=== PATIENT | female | born 1995 | race Two or more races ===

== ENCOUNTER 2023-07-24 07:30 | Emergency (ER) | payer OTHER, BC ==
[2023-07-24] MEDS ORDERED: fentaNYL 50 MCG/ML SDV ONE ×3 (07:52→08:33)
[2023-07-24] MEDS ORDERED: Sodium Chloride 0.9% 1,000 ML IV ONE (07:55)
[2023-07-24 07:56] LABS: BASOPHILS ABSOLUTE AUTO 0.02 K/uL (0.00-0.20); BASOPHILS PERCENT AUTO 0.2 % (0.0-2.0); EOSINOPHILS ABSOLUTE AUTO 0.08 K/uL (0.00-0.50); EOSINOPHILS PERCENT AUTO 0.9 % (0.0-5.0); HEMATOCRIT 42.9 % (34.0-46.0); HEMOGLOBIN 14.3 g/dL (11.7-15.5); LYMPHOCYTES ABSOLUTE AUTO 2.04 K/uL (0.50-3.50); MEAN CORPUSCULAR HEMOGLOBIN 29.5 pg (28.2-33.3); MEAN CORPUSCULAR HGB CONC 33.3 g/dL (31.7-36.0); MEAN CORPUSCULAR VOLUME 88.5 fL (84.0-98.0); MONOCYTES ABSOLUTE AUTO 0.64 K/uL (0.00-1.00); MONOCYTES PERCENT AUTO 6.9 % (2.0-14.0); NEUTROPHILS ABSOLUTE AUTO 6.48 K/uL (1.40-7.00); PLATELET COUNT,PLT 308 K/uL (150-350); RED BLOOD CELL COUNT 4.85 M/uL (3.77-5.09); WHITE BLOOD CELL COUNT,WBC 9.3 K/uL (4.0-10.2)
[2023-07-24] MEDS ORDERED: Ondansetron 4 MG/2 ML SDV ONE ×2 (08:01→08:40)
[2023-07-24 08:11] LABS: PROTHROMBIN TIME 9.6 SEC (9.0-11.1)
[2023-07-24 08:17] LABS: ALANINE AMINOTRANSFERASE,ALT 32 U/L (12-78); ALBUMIN 3.8 g/dL (3.4-5.0); ALKALINE PHOSPHATASE 110 IU/L (46-116); ANION GAP 10.1 meq/L (7-15); ASPARTATE AMNIOTRANSFERASE,AST 21 U/L (15-37); BILIRUBIN TOTAL 0.4 mg/dL (0.2-1.0); BLOOD UREA NITROGEN,BUN 15 mg/dL (7-18); CALCIUM 8.9 mg/dL (8.5-10.1); CARBON DIOXIDE,CO2 27.9 mmol/L (21.0-32.0); CHLORIDE,CL 103 mmol/L (98-107); CREATININE 0.85 mg/dL (0.51-1.17); ESTIMATED GFR 96 mL/min (>=60); GLUCOSE RANDOM 101 mg/dL (70-99); LIPASE 43 U/L (16-77); POTASSIUM,K 4.2 mmol/L (3.5-5.1); PROTEIN TOTAL,TP 8.2 g/dL (6.4-8.2); SODIUM,NA 141 mmol/L (136-145)
[2023-07-24] MEDS ORDERED: Prochlorperazine 10 MG/2 ML SDV ONE (08:55)
[2023-07-24] MEDS: Ketorolac 15 MG/ML SDV IVPUSH ONE (11:05)
== END 2023-07-24 11:20 | disposition home or self-care (01) ==
LOC: LL.ED 07:30
DX: S40.811A Abrasion of right upper arm, initial encounter (principal); V49.50XA Passenger injured in collision with unspecified motor vehicles in traffic accident, initial encounter; Y92.410 Unspecified street and highway as the place of occurrence of the external cause
CPT/HCPCS: 36415; 70450; 71250; 72125; 72170; 73060-RT; 80053; 83690; 84703; 85025; 85610; 96361; 96374; 96375; 96376; 99283; 99284-25; J0780; J1885; J2405; J3010; J7030

== ENCOUNTER 2023-10-18 19:27 | Emergency (ER) | payer BC ==
[2023-10-18 20:05] LABS: APPEARANCE,URINE CLEAR; BILIRUBIN,URINE NEGATIVE (NEGATIVE); COLOR,URINE YELLOW; GLUCOSE,URINE NEGATIVE (NEGATIVE); KETONES,URINE TRACE mg/dL (NEGATIVE); LEUKOCYTE ESTERASE,URINE NEGATIVE (NEGATIVE); NITRITE,URINE NEGATIVE (NEGATIVE); OCCULT BLOOD,URINE MODERATE (NEGATIVE); PROTEIN,URINE NEGATIVE (NEGATIVE); UROBILINOGEN,URINE 0.2 E.U./dL (0.2-1.0)
[2023-10-18] MEDS: Ketorolac 30 MG/ML SDV IVPUSH ONE (20:08)
[2023-10-18] MEDS: Metoclopramide 10 MG/2 ML SDV IVPUSH ONE (20:09)
[2023-10-18 20:13] LABS: BASOPHILS ABSOLUTE AUTO 0.03 K/uL (0.00-0.20); BASOPHILS PERCENT AUTO 0.2 % (0.0-2.0); EOSINOPHILS ABSOLUTE AUTO 0.05 K/uL (0.00-0.50); EOSINOPHILS PERCENT AUTO 0.4 % (0.0-5.0); HEMATOCRIT 42.5 % (34.0-46.0); HEMOGLOBIN 13.8 g/dL (11.7-15.5); LYMPHOCYTES ABSOLUTE AUTO 2.02 K/uL (0.50-3.50); LYMPHOCYTES PERCENT AUTO 14.7 % (10.0-50.0); MEAN CORPUSCULAR HEMOGLOBIN 29.3 pg (28.2-33.3); MEAN CORPUSCULAR HGB CONC 32.5 g/dL (31.7-36.0); MEAN CORPUSCULAR VOLUME 90.2 fL (84.0-98.0); MONOCYTES PERCENT AUTO 5.1 % (2.0-14.0); NEUTROPHILS PERCENT AUTO 79.6 % (45.0-80.0); PLATELET COUNT,PLT 257 K/uL (150-350); RED BLOOD CELL COUNT 4.71 M/uL (3.77-5.09); RED CELL DISTRIBUTION WIDTH 12.6 % (11.2-14.1); WHITE BLOOD CELL COUNT,WBC 13.7 K/uL (4.0-10.2)
[2023-10-18] MEDS: Sodium Chloride 0.9% 10 ML Syringe FLUSH PRN (20:16)
[2023-10-18 20:18] LABS: EPITHELIAL CELLS,URINE FEW /LPF; WBC,URINE 0-5 /HPF
[2023-10-18 20:26] LABS: ALANINE AMINOTRANSFERASE,ALT 35 U/L (12-78); ALBUMIN 3.9 g/dL (3.4-5.0); ALKALINE PHOSPHATASE 109 IU/L (46-116); ANION GAP 12.4 meq/L (7-15); ASPARTATE AMNIOTRANSFERASE,AST 22 U/L (15-37); BILIRUBIN TOTAL 0.5 mg/dL (0.2-1.0); BLOOD UREA NITROGEN,BUN 11 mg/dL (7-18); CARBON DIOXIDE,CO2 26.6 mmol/L (21.0-32.0); CHLORIDE,CL 98 mmol/L (98-107); CREATININE 0.82 mg/dL (0.51-1.17); GLUCOSE RANDOM 98 mg/dL (70-99); LIPASE 44 U/L (16-77); POTASSIUM,K 4.3 mmol/L (3.5-5.1); PROTEIN TOTAL,TP 8.4 g/dL (6.4-8.2); SODIUM,NA 137 mmol/L (136-145)
[2023-10-18 20:27] LABS: ESTIMATED GFR 100 mL/min (>=60)
[2023-10-18] MEDS: Take Home: Ondansetron 4 MG Tab.DIS, 5 Tab Pack PO ONE (20:34)
[2023-10-18] MEDS: Take Home: Acetaminophen/HYDROcodone 325-5 MG, 5 Tab Pack PO ONE (20:34)
== END 2023-10-18 20:53 | disposition home or self-care (01) ==
LOC: LL.ED 19:27 → MERGE 19:27 → LL.ED 20:53
DX: K80.50 Calculus of bile duct without cholangitis or cholecystitis without obstruction (principal)
CPT/HCPCS: 36415; 80053; 81001; 81025; 83690; 85025; 96374; 96375; 99284; A9270; J1885; J2765; Q0162; J3490